=== PATIENT | male | born 1965 | race African-American/Black ===

== ENCOUNTER 2020-12-08 10:58 | Inpatient (IN) | payer SELFPAY ==
[~2020-12-08 10:58] MED LIST: Iopamidol 370 76% 100 ML VIAL ONE
[2020-12-08] MEDS ORDERED: Nitroglycerin 2% Ointment 1 INCH/1 GM Packet ONE (11:12)
[2020-12-08 11:28] LABS: #Basophils 0.1 thou/uL (0.0-0.2); #Eosinphils 0.1 thou/uL (0.0-0.7); #Lymphocytes 1.4 thou/uL (1.20-3.40); #Monocytes 0.4 thou/uL (0.11-0.59); #Neutrophils 3.8 thou/uL (1.40-6.50); %Basophils 1.4 % (0.0-1.0); %Lymphocytes 23.9 % (21.0-51.0); %Monocytes 7.5 % (0.0-10.0); %Neutrophils 66.3 % (42.0-75.0); Hemoglobin 13.6 g/dL (14.0-18.0); Mean Corpuscular HGB CONC 32.9 g/dL (32.0-36.0); Mean Corpuscular Hemoglobin 32.8 pg (27.0-31.0); Mean Corpuscular Volume 99.6 fL (78.0-98.0); Mean Platelet Volume 7.8 fL (7.4-10.4); Platelet Count 251 thou/uL (130-400); RBC Distribution Width 13.3 % (11.5-14.5); Red Blood Cell (RBC) Count 4.14 mill/uL (4.70-6.10); White Blood Cell (WBC) Count 5.8 thou/uL (4.8-10.8)
[2020-12-08 11:31] LABS: ALT (SGPT) 17 U/L (8-55); AST (SGOT) 23 U/L (5-34); Albumin 3.8 g/dL (3.5-5.0); Alkaline Phosphatase 73 U/L (40-110); Anion Gap 11 mmol/L (10-20); BUN (Urea Nitrogen) 10 mg/dL (8.4-25.7); Bilirubin, Total 0.5 mg/dL (0.2-1.2); Calc. Creatinine Clearance 0 mL/min (70-130); Calcium 8.9 mg/dL (7.8-10.44); Carbon Dioxide 26 mmol/L (22-29); Chloride 102 mmol/L (98-107); Globulin 3.1 g/dL (2.4-3.5); Glucose 105 mg/dL (70-105); Lipase 6 U/L (8-78); Potassium 3.4 mmol/L (3.5-5.1); Protein, Total 6.9 g/dL (6.0-8.3); Sodium 136 mmol/L (136-145)
[2020-12-08] MEDS ORDERED: Labetalol HCl 100 MG/20 ML VIAL ONE (12:52)
[2020-12-08] MEDS ORDERED: Enoxaparin Sodium 100 MG/ML SYRINGE ONE (12:52)
[2020-12-08 14:05] LABS: SARS-CoV-2 NAA Rapid Test Not Detected (NotDetected)
[2020-12-08] MEDS ORDERED: cefTRIAXone\\ROCEPHIN 2 GM VIAL ONE (14:05)
[2020-12-08] MEDS ORDERED: Azithromycin 500 MG VIAL ONE (14:05)
[2020-12-08 14:44] LABS: Troponin I Less than 0.010 ng/mL (< 0.028)
[2020-12-08 17:59] LABS: Troponin I Less than 0.010 ng/mL (< 0.028)
[2020-12-08 18:00] VITALS: BMI 24.7
[2020-12-08] MEDS ORDERED: Ondansetron PF 4 MG/2 ML Vial IVP PRN (18:45)
[2020-12-08] MEDS ORDERED: Ondansetron ODT 4 MG TAB SL PRN (18:45)
[2020-12-08] MEDS ORDERED: Lorazepam 2 MG/ML VIAL SLOW IVP PRN (18:58)
[2020-12-08] MEDS ORDERED: Potassium Chloride 20 MEQ TAB PO SCH (19:00)
[2020-12-08] MEDS ORDERED: hydrALAZINE 20 MG/ML VIAL SLOW IVP PRN (19:07)
[2020-12-08] MEDS: Multivitamins, Adult 10 ML, Folic Acid 1 MG, Thiamine HCl 100 MG in Dextrose 5 %-0.45 %... IV SCH (21:52)
[2020-12-09 05:46] LABS: #Basophils 0.1 thou/uL (0.0-0.2); #Lymphocytes 1.9 thou/uL (1.20-3.40); #Monocytes 1.4 thou/uL (0.11-0.59); #Neutrophils 6.7 thou/uL (1.40-6.50); %Basophils 0.5 % (0.0-1.0); %Eosinophils 0.2 % (0.0-10.0); %Lymphocytes 18.5 % (21.0-51.0); %Monocytes 13.5 % (0.0-10.0); %Neutrophils 67.3 % (42.0-75.0); Hemoglobin 13.7 g/dL (14.0-18.0); Mean Corpuscular HGB CONC 33.6 g/dL (32.0-36.0); Mean Corpuscular Hemoglobin 33.4 pg (27.0-31.0); Mean Corpuscular Volume 99.4 fL (78.0-98.0); Platelet Count 243 thou/uL (130-400); RBC Distribution Width 13.3 % (11.5-14.5)
[2020-12-09 05:52] LABS: Hemoglobin A1c 5.3 % (4.0-6.0)
[2020-12-09 06:11] LABS: Anion Gap 12 mmol/L (10-20); BUN (Urea Nitrogen) 11 mg/dL (8.4-25.7); Calc. Creatinine Clearance 88 mL/min (70-130); Carbon Dioxide 25 mmol/L (22-29); Chloride 101 mmol/L (98-107); Cholesterol 163 mg/dl (< 200 Desired); Glucose 114 mg/dL (70-105); HDL Cholesterol 83 mg/dL (>60 Neg Risk); LDL Cholesterol, Calculated 69 mg/dL; Potassium 4.1 mmol/L (3.5-5.1); Sodium 134 mmol/L (136-145); Triglycerides 56 mg/dL (Less than 150)
[2020-12-09 06:36] LABS: Thyroid Stimulating Hormone 0.2192 uIU/mL (0.35-4.94)
[2020-12-09] MEDS: Aspirin 325 mg Enteric Coated Tablet PO SCH (08:38)
[2020-12-09] MEDS ORDERED: Sodium Chloride 0.9% 500 ML IV SCH (10:45)
[2020-12-09] MEDS: Sodium Chloride 0.9% 1,000 ML IV SCH ×2 (11:21→21:51)
[2020-12-09] MEDS ORDERED: ADENOSINE 60 MG/20 ML VIAL ONE (11:49)
[2020-12-09 12:04] LABS: #Basophils 0.1 thou/uL (0.0-0.2); #Lymphocytes 3.3 thou/uL (1.20-3.40); #Monocytes 1.2 thou/uL (0.11-0.59); #Neutrophils 7.2 thou/uL (1.40-6.50); %Basophils 0.8 % (0.0-1.0); %Eosinophils 0.1 % (0.0-10.0); %Lymphocytes 27.9 % (21.0-51.0); %Monocytes 9.9 % (0.0-10.0); %Neutrophils 61.3 % (42.0-75.0); Hemoglobin 13.9 g/dL (14.0-18.0); Mean Corpuscular HGB CONC 32.5 g/dL (32.0-36.0); Mean Corpuscular Hemoglobin 32.6 pg (27.0-31.0); Mean Platelet Volume 7.8 fL (7.4-10.4); Platelet Count 256 thou/uL (130-400); RBC Distribution Width 13.4 % (11.5-14.5); Red Blood Cell (RBC) Count 4.28 mill/uL (4.70-6.10); White Blood Cell (WBC) Count 11.8 thou/uL (4.8-10.8)
[2020-12-09 12:35] LABS: Lactic Acid 2.3 mmol/L (0.5-2.2)
[2020-12-09] MEDS: cefTRIAXone\\ROCEPHIN 2 GM in Sodium Chloride 0.9% 100 ML IVPB SCH (13:41)
[2020-12-09] MEDS: Azithromycin 500 MG in Sodium Chloride 0.9% 250 ML 250 ML IVPB SCH (14:48)
[2020-12-09] MEDS ORDERED: Communication Order-Pharmacy FS SCH (20:15)
[2020-12-09] MEDS ORDERED: Carvedilol 3.125 MG TAB PO SCH (20:45)
[2020-12-09] MEDS: Multivitamins, Adult 10 ML, Folic Acid 1 MG, Thiamine HCl 100 MG in Dextrose 5 %-0.45 %... IV SCH (21:51)
[2020-12-10 01:47] LABS: Amphetamine Detected (NotDetected); Barbiturates Screen Not Detected (NotDetected); Benzodiazepine Screen Not Detected (NotDetected); Cocaine Metabolite Screen Not Detected (NotDetected); Medtox Control Line Valid? VALID (VALID); Medtox Reader # READER 4; Methadone Not Detected (NotDetected); Methamphetamine Detected (NotDetected); Opiate Screen Not Detected (NotDetected); Oxycodone Screen Not Detected (NotDetected); Phencyclidine (PCP) Not Detected (NotDetected); THC/Cannabinoid Screen Not Detected (NotDetected); Tricyclic Screen Not Detected (NotDetected)
[2020-12-10 05:13] LABS: #Lymphocytes 2.4 thou/uL (1.20-3.40); #Monocytes 1.4 thou/uL (0.11-0.59); #Neutrophils 6.1 thou/uL (1.40-6.50); %Basophils 0.2 % (0.0-1.0); %Eosinophils 0.5 % (0.0-10.0); %Lymphocytes 24.2 % (21.0-51.0); %Monocytes 13.8 % (0.0-10.0); %Neutrophils 61.4 % (42.0-75.0); Hemoglobin 13.5 g/dL (14.0-18.0); Mean Corpuscular HGB CONC 33.2 g/dL (32.0-36.0); Mean Corpuscular Volume 99.6 fL (78.0-98.0); Mean Platelet Volume 7.9 fL (7.4-10.4); Platelet Count 237 thou/uL (130-400); RBC Distribution Width 13.3 % (11.5-14.5); Red Blood Cell (RBC) Count 4.09 mill/uL (4.70-6.10)
[2020-12-10 05:34] LABS: Anion Gap 12 mmol/L (10-20); BUN (Urea Nitrogen) 12 mg/dL (8.4-25.7); Calc. Creatinine Clearance 78 mL/min (70-130); Calcium 8.9 mg/dL (7.8-10.44); Carbon Dioxide 26 mmol/L (22-29); Chloride 103 mmol/L (98-107); Glucose 97 mg/dL (70-105); Potassium 4.6 mmol/L (3.5-5.1); Sodium 136 mmol/L (136-145)
[2020-12-10] MEDS: Carvedilol 3.125 MG TAB PO SCH ×2 (05:38→17:39)
[2020-12-10] MEDS: Aspirin 325 mg Enteric Coated Tablet PO SCH (05:38)
[2020-12-10] MEDS: Lisinopril 10 MG TAB PO SCH (05:38)
[2020-12-10] MEDS ORDERED: Verapamil 5 MG/2 ML VIAL ONE (06:39)
[2020-12-10] MEDS ORDERED: Heparin 10,000 UNITS/ 10 ML VIAL ONE (06:39)
[2020-12-10] MEDS ORDERED: Lidocaine 1% (PF) 30 ML VIAL ONE (06:39)
[2020-12-10] MEDS ORDERED: Nitroglycerin 100MG/250ML BOT 250 ML ONE (06:39)
[2020-12-10] MEDS ORDERED: hydrALAZINE 20 MG/ML VIAL ONE ×2 (08:03→08:12)
[2020-12-10] MEDS ORDERED: Acetaminophen/Codeine 30-300mg Tablet PO PRN ×4 (08:23→09:04)
[2020-12-10] MEDS ORDERED: Sodium Chloride 0.9% 200 ML IV PRN ×2 (08:23→09:04)
[2020-12-10] MEDS ORDERED: Nitroglycerin 0.4 MG TAB (25 Tab Bottle) SL PRN ×2 (08:23→09:04)
[2020-12-10] MEDS ORDERED: Iopamidol 370 76% 50 ML VIAL FS ONE (09:11)
[2020-12-10] MEDS ORDERED: Iopamidol 370 76% 100 ML VIAL ONE (09:11)
[2020-12-10 12:25] LABS: Lactic Acid 1.4 mmol/L (0.5-2.2)
[2020-12-10] MEDS: Sodium Chloride 0.9% 1,000 ML IV SCH (15:30)
[2020-12-10] MEDS: Azithromycin 500 MG in Sodium Chloride 0.9% 250 ML 250 ML IVPB SCH (15:30)
[2020-12-10] MEDS ORDERED: cefTRIAXone\\ROCEPHIN 2 GM in Sodium Chloride 0.9% 100 ML IVPB SCH (16:00)
[2020-12-10] MEDS: cefTRIAXone\\ROCEPHIN 2 GM in Sodium Chloride 0.9% 100 ML IVPB SCH (18:20)
[2020-12-10] MEDS: Multivitamins, Adult 10 ML, Folic Acid 1 MG, Thiamine HCl 100 MG in Dextrose 5 %-0.45 %... IV SCH (20:26)
[2020-12-11] MEDS: Sodium Chloride 0.9% 1,000 ML IV SCH (02:20)
[2020-12-11 04:41] VITALS: TEMP 98.4
[2020-12-11] MEDS ORDERED: Carvedilol 6.25 MG TAB PO SCH (08:00)
[2020-12-11] MEDS: Lisinopril 10 MG TAB PO SCH (08:19)
[2020-12-11] MEDS: Aspirin 325 mg Enteric Coated Tablet PO SCH (08:19)
[2020-12-11 09:35] VITALS: BP 180/109
[2020-12-11 16:16] LABS: Free T4 (Free Thyroxine) 1.09 ng/dL (0.70-1.48)
== END 2020-12-11 11:41 | disposition home or self-care (01) | DRG 286 ==
LOC: ERS 10:58 → ERHOLD 13:38 → 2SW 18:14 → OBSVTOIN 12-09 18:07
PROVIDERS: ADMIT Internal Medicine; ATTEND Physician Assistant
PROC: 4A023N7 Measurement of Cardiac Sampling and Pressure, Left Heart, Percutaneous Approach (ICD-10-PCS; principal; 2020-12-10)
PROC: B2111ZZ Fluoroscopy of Multiple Coronary Arteries using Low Osmolar Contrast (ICD-10-PCS; 2020-12-10)
PROC: B2151ZZ Fluoroscopy of Left Heart using Low Osmolar Contrast (ICD-10-PCS; 2020-12-10)
PROC: B3101ZZ Fluoroscopy of Thoracic Aorta using Low Osmolar Contrast (ICD-10-PCS; 2020-12-10)
DX: R07.89 Other chest pain (principal); J18.9 Pneumonia, unspecified organism; I10 Essential (primary) hypertension; E78.5 Hyperlipidemia, unspecified; F17.210 Nicotine dependence, cigarettes, uncomplicated; F10.10 Alcohol abuse, uncomplicated; I73.9 Peripheral vascular disease, unspecified; I70.0 Atherosclerosis of aorta; Z20.822 Contact with and (suspected) exposure to COVID-19; Z82.49 Family history of ischemic heart disease and other diseases of the circulatory system
CPT/HCPCS: 0240U; 36415; 71045; 71275; 74174; 78452; 80048; 80053; 80061; 80306; 82607; 82746; 83036; 83605; 83690; 83735; 83880; 84439; 84443; 84481; 84484; 85025; 87040; 90471; 90732; 93005; 93017; 93306; 93458; 96365; 96366; 96367; 96372; 96375; A9500; G0009; G0378; J0153; J0360; J0456; J0696; J1644; J1650; J2001; J3411; J3490; J7042; J7050; Q9967

== ENCOUNTER 2022-05-04 09:17 | Inpatient (IN) | payer SELFPAY ==
[2022-05-04 11:27] VITALS: BMI 24.5
[2022-05-04] MEDS ORDERED: FLU VACC QS2022-23(6MOS UP)/PF 60 MCG/0.5 ML SYRINGE IM ONE (11:45)
[2022-05-04 12:11] LABS: #Basophils 0.1 thou/uL (0.0-0.2); #Eosinphils 0.1 thou/uL (0.0-0.7); #Lymphocytes 1.6 thou/uL (1.20-3.40); #Monocytes 0.8 thou/uL (0.11-0.59); #Neutrophils 4.2 thou/uL (1.40-6.50); %Basophils 0.9 % (0.0-1.0); %Eosinophils 0.8 % (0.0-10.0); %Lymphocytes 23.9 % (21.0-51.0); %Monocytes 12.2 % (0.0-10.0); %Neutrophils 62.2 % (42.0-75.0); Hemoglobin 14.3 g/dL (14.0-18.0); Mean Corpuscular HGB CONC 33.7 g/dL (32.0-36.0); Mean Corpuscular Hemoglobin 34.4 pg (27.0-31.0); Mean Platelet Volume 7.7 fL (7.4-10.4); Platelet Count 313 10x3/uL (130-400); Red Blood Cell (RBC) Count 4.16 mill/uL (4.70-6.10); White Blood Cell (WBC) Count 6.8 10x3/uL (4.8-10.8)
[2022-05-04] MEDS ORDERED: hydrALAZINE 20 MG/ML VIAL SLOW IVP PRN (12:19)
[2022-05-04 12:26] LABS: ALT (SGPT) 63 U/L (8-55); AST (SGOT) 41 U/L (5-34); Alkaline Phosphatase 119 U/L (40-110); Anion Gap 14 mmol/L (10-20); BUN (Urea Nitrogen) 14 mg/dL (8.4-25.7); Bilirubin, Total 1.1 mg/dL (0.2-1.2); Calc. Creatinine Clearance 72 mL/min (70-130); Calcium 9.5 mg/dL (7.8-10.44); Carbon Dioxide 28 mmol/L (22-29); Chloride 103 mmol/L (98-107); Estimated GFR 63; Globulin 2.8 g/dL (2.4-3.5); Glucose 80 mg/dL (70-105); Potassium 4.4 mmol/L (3.5-5.1); Protein, Total 6.8 g/dL (6.0-8.3); Sodium 141 mmol/L (136-145)
[2022-05-04 12:41] LABS: CKMB 3.8 ng/mL (0-6.6)
[2022-05-04] MEDS ORDERED: Oseltamivir 75 MG CAP PO SCH (12:41)
[2022-05-04] MEDS ORDERED: Furosemide 40 MG/4 ML VIAL SLOW IVP SCH (14:00)
[2022-05-04 14:08] LABS: SARS-CoV-2 NAA Rapid Test Not Detected (NotDetected)
[2022-05-04] MEDS: Heparin 5,000 UNITS/ML VIAL SC SCH ×2 (14:21→21:22)
[2022-05-04] MEDS: Acetaminophen 325 MG TAB PO PRN (14:23)
[2022-05-04] MEDS: Carvedilol 3.125 MG TAB PO SCH (16:28)
[2022-05-04] MEDS: cefTRIAXone\\ROCEPHIN 1 GM in Sodium Chloride 0.9% 100 ML IVPB SCH (16:28)
[2022-05-04] MEDS: Azithromycin 500 MG in Sodium Chloride 0.9% 250 ML 250 ML IVPB SCH (17:42)
[2022-05-04] MEDS: Simvastatin 10 MG TAB PO SCH (21:22)
[2022-05-04] MEDS: Furosemide 40 MG/4 ML VIAL SLOW IVP SCH (21:22)
[2022-05-04] MEDS: Oseltamivir 75 MG CAP PO SCH (21:23)
[2022-05-05 05:14] LABS: Anion Gap 13 mmol/L (10-20); BUN (Urea Nitrogen) 17 mg/dL (8.4-25.7); Calc. Creatinine Clearance 71 mL/min (70-130); Calcium 8.9 mg/dL (7.8-10.44); Carbon Dioxide 28 mmol/L (22-29); Chloride 101 mmol/L (98-107); Estimated GFR 62; Glucose 79 mg/dL (70-105); Potassium 3.4 mmol/L (3.5-5.1); Sodium 139 mmol/L (136-145)
[2022-05-05] MEDS: Aspirin Chewable 81 MG TAB PO SCH (08:50)
[2022-05-05] MEDS: Oseltamivir 75 MG CAP PO SCH ×2 (08:50→21:43)
[2022-05-05] MEDS: Carvedilol 3.125 MG TAB PO SCH ×2 (08:50→16:30)
[2022-05-05] MEDS: Heparin 5,000 UNITS/ML VIAL SC SCH ×3 (08:50→21:42)
[2022-05-05] MEDS: Acetaminophen 325 MG TAB PO PRN (08:50)
[2022-05-05] MEDS: Furosemide 40 MG/4 ML VIAL SLOW IVP SCH ×2 (08:50→21:42)
[2022-05-05] MEDS: cefTRIAXone\\ROCEPHIN 1 GM in Sodium Chloride 0.9% 100 ML IVPB SCH (17:26)
[2022-05-05] MEDS: Azithromycin 500 MG in Sodium Chloride 0.9% 250 ML 250 ML IVPB SCH (17:30)
[2022-05-05] MEDS: Simvastatin 10 MG TAB PO SCH (21:43)
[2022-05-06 05:04] LABS: #Basophils 0.1 thou/uL (0.0-0.2); #Eosinphils 0.2 thou/uL (0.0-0.7); #Lymphocytes 1.9 thou/uL (1.20-3.40); #Monocytes 0.7 thou/uL (0.11-0.59); #Neutrophils 3.1 thou/uL (1.40-6.50); %Basophils 1.1 % (0.0-1.0); %Eosinophils 2.8 % (0.0-10.0); %Monocytes 11.1 % (0.0-10.0); Hemoglobin 13.4 g/dL (14.0-18.0); Mean Corpuscular HGB CONC 32.7 g/dL (32.0-36.0); Mean Corpuscular Hemoglobin 33.2 pg (27.0-31.0); Platelet Count 286 10x3/uL (130-400); RBC Distribution Width 12.9 % (11.5-14.5); Red Blood Cell (RBC) Count 4.04 mill/uL (4.70-6.10); White Blood Cell (WBC) Count 5.8 10x3/uL (4.8-10.8)
[2022-05-06 05:17] LABS: Anion Gap 12 mmol/L (10-20); BUN (Urea Nitrogen) 19 mg/dL (8.4-25.7); Calc. Creatinine Clearance 73 mL/min (70-130); Calcium 8.8 mg/dL (7.8-10.44); Carbon Dioxide 27 mmol/L (22-29); Chloride 101 mmol/L (98-107); Estimated GFR 64; Glucose 89 mg/dL (70-105); Potassium 3.5 mmol/L (3.5-5.1); Sodium 136 mmol/L (136-145)
[2022-05-06] MEDS: Oseltamivir 75 MG CAP PO SCH ×2 (09:27→20:36)
[2022-05-06] MEDS: Carvedilol 3.125 MG TAB PO SCH (09:27)
[2022-05-06] MEDS: Aspirin Chewable 81 MG TAB PO SCH (09:27)
[2022-05-06] MEDS: Heparin 5,000 UNITS/ML VIAL SC SCH ×3 (09:27→20:35)
[2022-05-06] MEDS: Furosemide 40 MG/4 ML VIAL SLOW IVP SCH ×2 (09:27→20:36)
[2022-05-06] MEDS: Acetaminophen 325 MG TAB PO PRN (09:28)
[2022-05-06] MEDS ORDERED: Carvedilol 3.125 MG TAB PO SCH (10:45)
[2022-05-06] MEDS: Carvedilol 6.25 MG TAB PO SCH (16:52)
[2022-05-06] MEDS: cefTRIAXone\\ROCEPHIN 1 GM in Sodium Chloride 0.9% 100 ML IVPB SCH (16:52)
[2022-05-06] MEDS: Simvastatin 10 MG TAB PO SCH (20:36)
[2022-05-07 05:06] LABS: #Eosinphils 0.3 thou/uL (0.0-0.7); #Lymphocytes 1.9 thou/uL (1.20-3.40); #Monocytes 0.7 thou/uL (0.11-0.59); #Neutrophils 2.4 thou/uL (1.40-6.50); %Basophils 0.6 % (0.0-1.0); %Eosinophils 4.8 % (0.0-10.0); %Lymphocytes 35.4 % (21.0-51.0); %Monocytes 13.9 % (0.0-10.0); %Neutrophils 45.3 % (42.0-75.0); Hemoglobin 13.1 g/dL (14.0-18.0); Mean Corpuscular Hemoglobin 33.5 pg (27.0-31.0); Platelet Count 275 10x3/uL (130-400); RBC Distribution Width 12.8 % (11.5-14.5); White Blood Cell (WBC) Count 5.3 10x3/uL (4.8-10.8)
[2022-05-07 05:30] LABS: Anion Gap 11 mmol/L (10-20); BUN (Urea Nitrogen) 21 mg/dL (8.4-25.7); Calc. Creatinine Clearance 63 mL/min (70-130); Calcium 8.8 mg/dL (7.8-10.44); Carbon Dioxide 29 mmol/L (22-29); Chloride 101 mmol/L (98-107); Estimated GFR 50; Glucose 89 mg/dL (70-105); Magnesium 1.9 mg/dL (1.6-2.6); Potassium 3.7 mmol/L (3.5-5.1); Sodium 137 mmol/L (136-145)
[2022-05-07] MEDS: Furosemide 40 MG/4 ML VIAL SLOW IVP SCH ×2 (10:08→20:44)
[2022-05-07] MEDS: Heparin 5,000 UNITS/ML VIAL SC SCH ×2 (10:08→15:25)
[2022-05-07] MEDS: Oseltamivir 75 MG CAP PO SCH ×2 (10:08→20:45)
[2022-05-07] MEDS: Carvedilol 6.25 MG TAB PO SCH ×2 (10:08→16:15)
[2022-05-07] MEDS: Aspirin Chewable 81 MG TAB PO SCH (10:08)
[2022-05-07] MEDS: cefTRIAXone\\ROCEPHIN 1 GM in Sodium Chloride 0.9% 100 ML IVPB SCH (16:15)
[2022-05-07] MEDS: Acetaminophen 325 MG TAB PO PRN (20:44)
[2022-05-07] MEDS: Simvastatin 10 MG TAB PO SCH (20:45)
[2022-05-08] MEDS: Acetaminophen 325 MG TAB PO PRN (02:17)
[2022-05-08 03:03] LABS: Troponin I 0.269 ng/mL (< 0.028)
[2022-05-08] MEDS ORDERED: Enoxaparin Sodium 80 MG/0.8 ML SYRINGE SC SCH (03:45)
[2022-05-08 05:19] LABS: Anion Gap 11 mmol/L (10-20); BUN (Urea Nitrogen) 20 mg/dL (8.4-25.7); Calc. Creatinine Clearance 64 mL/min (70-130); Calcium 9.1 mg/dL (7.8-10.44); Carbon Dioxide 28 mmol/L (22-29); Chloride 102 mmol/L (98-107); Estimated GFR 56; Glucose 96 mg/dL (70-105); Sodium 137 mmol/L (136-145)
[2022-05-08] MEDS: Nitroglycerin 0.4 MG TAB (25 Tab Bottle) SL PRN ×3 (05:19→05:36)
[2022-05-08 05:54] LABS: Troponin I 0.291 ng/mL (< 0.028)
[2022-05-08] MEDS: Oseltamivir 75 MG CAP PO SCH ×2 (08:53→20:07)
[2022-05-08] MEDS: Aspirin Chewable 81 MG TAB PO SCH (08:53)
[2022-05-08] MEDS: Furosemide 40 MG/4 ML VIAL SLOW IVP SCH (08:53)
[2022-05-08] MEDS: Carvedilol 6.25 MG TAB PO SCH ×2 (08:53→17:33)
[2022-05-08 10:26] LABS: Troponin I 0.417 ng/mL (< 0.028)
[2022-05-08] MEDS ORDERED: Nitroglycerin 2% Ointment 1 INCH/1 GM Packet TOP SCH (11:15)
[2022-05-08] MEDS: Nitroglycerin 2% Ointment 1 INCH/1 GM Packet TOP SCH ×2 (14:59→21:20)
[2022-05-08] MEDS: cefTRIAXone\\ROCEPHIN 1 GM in Sodium Chloride 0.9% 100 ML IVPB SCH (17:33)
[2022-05-08] MEDS: Simvastatin 10 MG TAB PO SCH (20:07)
[2022-05-08] MEDS: Enoxaparin Sodium 80 MG/0.8 ML SYRINGE SC SCH (20:08)
[2022-05-09 04:51] LABS: Anion Gap 11 mmol/L (10-20); BUN (Urea Nitrogen) 17 mg/dL (8.4-25.7); Calc. Creatinine Clearance 70 mL/min (70-130); Carbon Dioxide 27 mmol/L (22-29); Chloride 102 mmol/L (98-107); Estimated GFR 64; Glucose 86 mg/dL (70-105); Sodium 136 mmol/L (136-145)
[2022-05-09] MEDS: Nitroglycerin 2% Ointment 1 INCH/1 GM Packet TOP SCH ×2 (05:16→13:43)
[2022-05-09] MEDS: Furosemide 20 MG TAB PO SCH ×2 (08:10→13:43)
[2022-05-09] MEDS: Carvedilol 6.25 MG TAB PO SCH ×2 (08:10→16:35)
[2022-05-09] MEDS: Enoxaparin Sodium 80 MG/0.8 ML SYRINGE SC SCH ×2 (08:10→20:03)
[2022-05-09] MEDS: Aspirin Chewable 81 MG TAB PO SCH (08:10)
[2022-05-09] MEDS ORDERED: Lisinopril 5 MG TAB PO SCH (13:30)
[2022-05-09] MEDS: Simvastatin 10 MG TAB PO SCH (20:03)
[2022-05-10] MEDS: Acetaminophen 325 MG TAB PO PRN (03:34)
[2022-05-10 05:20] LABS: Anion Gap 12 mmol/L (10-20); BUN (Urea Nitrogen) 19 mg/dL (8.4-25.7); Calc. Creatinine Clearance 74 mL/min (70-130); Calcium 8.9 mg/dL (7.8-10.44); Carbon Dioxide 27 mmol/L (22-29); Chloride 101 mmol/L (98-107); Estimated GFR 60; Glucose 79 mg/dL (70-105); Sodium 136 mmol/L (136-145)
[2022-05-10] MEDS: Furosemide 20 MG TAB PO SCH (08:20)
[2022-05-10] MEDS: Carvedilol 6.25 MG TAB PO SCH (08:20)
[2022-05-10] MEDS: Aspirin Chewable 81 MG TAB PO SCH (08:22)
[2022-05-10] MEDS ORDERED: Lisinopril 5 MG TAB PO SCH (09:00)
[2022-05-10 12:04] VITALS: BP 106/69; TEMP 97.7
== END 2022-05-10 12:50 | disposition home or self-care (01) | DRG 280 ==
LOC: 2NO 11:06
PROVIDERS: ADMIT Internal Medicine; ATTEND Internal Medicine
DX: I11.0 Hypertensive heart disease with heart failure (principal); I21.A1 Myocardial infarction type 2; I50.43 Acute on chronic combined systolic (congestive) and diastolic (congestive) heart failure; J96.01 Acute respiratory failure with hypoxia; N17.9 Acute kidney failure, unspecified; I16.9 Hypertensive crisis, unspecified; I48.92 Unspecified atrial flutter; J10.1 Influenza due to other identified influenza virus with other respiratory manifestations; Z20.822 Contact with and (suspected) exposure to COVID-19; F15.10 Other stimulant abuse, uncomplicated; F10.10 Alcohol abuse, uncomplicated; K76.89 Other specified diseases of liver; Z91.199 Patient's noncompliance with other medical treatment and regimen due to unspecified reason; Z53.29 Procedure and treatment not carried out because of patient's decision for other reasons; Z79.82 Long term (current) use of aspirin
CPT/HCPCS: 36415; 80048; 82553; 83735; 83880; 84145; 84484; 85025; 93005; 93010; 93798; J0456; J0696; J1644; J1650; J1940; J3490; J7050; U0002

== ENCOUNTER 2022-09-20 17:42 | Inpatient (IN) | payer SELFPAY ==
[2022-09-20 18:20] LABS: #Eosinphils 0.1 thou/uL (0.0-0.7); #Lymphocytes 1.2 thou/uL (1.20-3.40); #Monocytes 0.8 thou/uL (0.11-0.59); #Neutrophils 4.9 thou/uL (1.40-6.50); %Basophils 0.3 % (0.0-1.0); %Eosinophils 0.7 % (0.0-10.0); %Lymphocytes 17.9 % (21.0-51.0); %Monocytes 10.9 % (0.0-10.0); %Neutrophils 70.2 % (42.0-75.0); Hemoglobin 12.8 g/dL (14.0-18.0); Mean Corpuscular HGB CONC 33.7 g/dL (32.0-36.0); Mean Corpuscular Hemoglobin 33.7 pg (27.0-31.0); Mean Platelet Volume 7.6 fL (7.4-10.4); Platelet Count 264 10x3/uL (130-400); RBC Distribution Width 14.1 % (11.5-14.5); Red Blood Cell (RBC) Count 3.79 mill/uL (4.70-6.10); White Blood Cell (WBC) Count 6.9 10x3/uL (4.8-10.8)
[2022-09-20 18:38] LABS: ALT (SGPT) 20 U/L (8-55); AST (SGOT) 15 U/L (5-34); Albumin 3.6 g/dL (3.5-5.0); Alkaline Phosphatase 89 U/L (40-110); Anion Gap 9 mmol/L (10-20); BUN (Urea Nitrogen) 10 mg/dL (8.4-25.7); Bilirubin, Total 1.5 mg/dL (0.2-1.2); CK (CPK) 96 U/L (30-200); Calc. Creatinine Clearance 0 mL/min (70-130); Calcium 8.7 mg/dL (7.8-10.44); Carbon Dioxide 26 mmol/L (22-29); Chloride 104 mmol/L (98-107); Estimated GFR 68; Glucose 105 mg/dL (70-105); Protein, Total 6.6 g/dL (6.0-8.3); Sodium 135 mmol/L (136-145)
[2022-09-20 19:00] LABS: CKMB 2.2 ng/mL (0-6.6)
[2022-09-20] MEDS ORDERED: Nitroglycerin 2% Ointment 1 INCH/1 GM Packet ONE (19:14)
[2022-09-20] MEDS ORDERED: Furosemide 40 MG/4 ML VIAL ONE ×2 (19:14→19:15)
[2022-09-20] MEDS ORDERED: Aspirin Chewable 81 MG TAB ONE (19:14)
[2022-09-20] MEDS ORDERED: Acetaminophen 325 MG TAB PO PRN (19:20)
[2022-09-20] MEDS ORDERED: Ondansetron PF 4 MG/2 ML Vial IVP PRN (19:20)
[2022-09-20] MEDS ORDERED: Guaifenesin DM 100-10/5 ML UDCUP PO PRN (19:20)
[2022-09-20] MEDS ORDERED: Senokot S 8.6-50 MG TAB PO PRN (19:20)
[2022-09-20] MEDS ORDERED: Calcium Carbonate 500 MG ChewTAB PO PRN (19:20)
[2022-09-20 21:36] VITALS: BMI 26.8
[2022-09-20 22:56] LABS: Troponin I 0.038 ng/mL (< 0.028)
[2022-09-21] MEDS: Simvastatin 10 MG TAB PO SCH ×2 (00:35→20:54)
[2022-09-21 01:19] LABS: Troponin I 0.041 ng/mL (< 0.028)
[2022-09-21 04:58] LABS: #Eosinphils 0.1 thou/uL (0.0-0.7); #Lymphocytes 1.6 thou/uL (1.20-3.40); #Monocytes 0.7 thou/uL (0.11-0.59); #Neutrophils 4.2 thou/uL (1.40-6.50); %Basophils 0.5 % (0.0-1.0); %Eosinophils 1.1 % (0.0-10.0); %Lymphocytes 23.7 % (21.0-51.0); %Monocytes 10.8 % (0.0-10.0); %Neutrophils 63.9 % (42.0-75.0); Hemoglobin 12.5 g/dL (14.0-18.0); Mean Corpuscular HGB CONC 33.4 g/dL (32.0-36.0); Mean Corpuscular Hemoglobin 33.5 pg (27.0-31.0); Mean Platelet Volume 7.8 fL (7.4-10.4); Platelet Count 254 10x3/uL (130-400); RBC Distribution Width 14.5 % (11.5-14.5); Red Blood Cell (RBC) Count 3.74 mill/uL (4.70-6.10); White Blood Cell (WBC) Count 6.6 10x3/uL (4.8-10.8)
[2022-09-21] MEDS: Furosemide 40 MG/4 ML VIAL SLOW IVP SCH ×2 (05:22→14:18)
[2022-09-21 05:27] LABS: ALT (SGPT) 19 U/L (8-55); AST (SGOT) 13 U/L (5-34); Albumin 3.4 g/dL (3.5-5.0); Alkaline Phosphatase 84 U/L (40-110); Anion Gap 12 mmol/L (10-20); BUN (Urea Nitrogen) 11 mg/dL (8.4-25.7); Calc. Creatinine Clearance 89 mL/min (70-130); Calcium 8.6 mg/dL (7.8-10.44); Carbon Dioxide 25 mmol/L (22-29); Chloride 105 mmol/L (98-107); Estimated GFR 72; Globulin 2.9 g/dL (2.4-3.5); Glucose 93 mg/dL (70-105); Magnesium 1.9 mg/dL (1.6-2.6); Potassium 3.8 mmol/L (3.5-5.1); Protein, Total 6.3 g/dL (6.0-8.3); Sodium 138 mmol/L (136-145)
[2022-09-21] MEDS: Lisinopril 5 MG TAB PO SCH (08:31)
[2022-09-21] MEDS: Carvedilol 6.25 MG TAB PO SCH ×2 (08:31→16:26)
[2022-09-21] MEDS: Aspirin Chewable 81 MG TAB PO SCH (08:31)
[2022-09-22 05:29] LABS: #Eosinphils 0.1 thou/uL (0.0-0.7); #Lymphocytes 1.6 thou/uL (1.20-3.40); #Monocytes 0.8 thou/uL (0.11-0.59); #Neutrophils 3.4 thou/uL (1.40-6.50); %Basophils 0.3 % (0.0-1.0); %Eosinophils 1.7 % (0.0-10.0); Anion Gap 8 mmol/L (10-20); BUN (Urea Nitrogen) 13 mg/dL (8.4-25.7); Calc. Creatinine Clearance 87 mL/min (70-130); Calcium 8.6 mg/dL (7.8-10.44); Carbon Dioxide 31 mmol/L (22-29); Chloride 102 mmol/L (98-107); Estimated GFR 71; Glucose 95 mg/dL (70-105); Hemoglobin 11.9 g/dL (14.0-18.0); Mean Corpuscular HGB CONC 32.7 g/dL (32.0-36.0); Mean Corpuscular Hemoglobin 32.9 pg (27.0-31.0); Platelet Count 251 10x3/uL (130-400); Potassium 3.7 mmol/L (3.5-5.1); RBC Distribution Width 14.1 % (11.5-14.5); Sodium 137 mmol/L (136-145); White Blood Cell (WBC) Count 5.9 10x3/uL (4.8-10.8)
[2022-09-22] MEDS ORDERED: Furosemide 20 MG TAB PO SCH (09:00)
[2022-09-22] MEDS: Furosemide 40 MG TAB PO SCH ×2 (10:50→14:10)
[2022-09-22] MEDS: Lisinopril 5 MG TAB PO SCH (10:50)
[2022-09-22] MEDS: Aspirin Chewable 81 MG TAB PO SCH (10:50)
[2022-09-22] MEDS: Carvedilol 6.25 MG TAB PO SCH (10:52)
[2022-09-22 15:49] LABS: Amphetamine Not Detected (NotDetected); Barbiturates Screen Not Detected (NotDetected); Benzodiazepine Screen Not Detected (NotDetected); Cocaine Metabolite Screen Not Detected (NotDetected); Methadone Not Detected (NotDetected); Methamphetamine Not Detected (NotDetected); Opiate Screen Not Detected (NotDetected); Oxycodone Screen Not Detected (NotDetected); Phencyclidine (PCP) Not Detected (NotDetected); THC/Cannabinoid Screen Not Detected (NotDetected); Tricyclic Screen Not Detected (NotDetected)
[2022-09-22] MEDS: Carvedilol 25 MG TAB PO SCH (16:17)
[2022-09-22] MEDS ORDERED: Carvedilol 6.25 MG TAB PO SCH (17:00)
[2022-09-22] MEDS: Simvastatin 10 MG TAB PO SCH (20:16)
[2022-09-22] MEDS: Lisinopril 10 MG TAB PO SCH (23:12)
[2022-09-23] MEDS ORDERED: Nitroglycerin 0.4 MG TAB (25 Tab Bottle) SL PRN (01:02)
[2022-09-23 05:26] LABS: #Eosinphils 0.1 thou/uL (0.0-0.7); #Lymphocytes 1.6 thou/uL (1.20-3.40); #Monocytes 0.7 thou/uL (0.11-0.59); #Neutrophils 3.3 thou/uL (1.40-6.50); %Basophils 0.5 % (0.0-1.0); %Eosinophils 2.3 % (0.0-10.0); %Lymphocytes 27.5 % (21.0-51.0); %Monocytes 12.6 % (0.0-10.0); %Neutrophils 57.1 % (42.0-75.0); Mean Corpuscular HGB CONC 32.9 g/dL (32.0-36.0); Mean Platelet Volume 7.8 fL (7.4-10.4); Platelet Count 252 10x3/uL (130-400); RBC Distribution Width 14.2 % (11.5-14.5); Red Blood Cell (RBC) Count 3.65 mill/uL (4.70-6.10); White Blood Cell (WBC) Count 5.8 10x3/uL (4.8-10.8)
[2022-09-23 05:51] LABS: Anion Gap 13 mmol/L (10-20); BUN (Urea Nitrogen) 16 mg/dL (8.4-25.7); Calc. Creatinine Clearance 74 mL/min (70-130); Calcium 9.1 mg/dL (7.8-10.44); Carbon Dioxide 25 mmol/L (22-29); Chloride 103 mmol/L (98-107); Estimated GFR 62; Glucose 93 mg/dL (70-105); Potassium 3.8 mmol/L (3.5-5.1); Sodium 137 mmol/L (136-145)
[2022-09-23] MEDS: Carvedilol 25 MG TAB PO SCH ×2 (08:28→17:36)
[2022-09-23] MEDS: Aspirin Chewable 81 MG TAB PO SCH (08:28)
[2022-09-23] MEDS: Lisinopril 10 MG TAB PO SCH ×2 (08:28→19:52)
[2022-09-23] MEDS: Furosemide 40 MG TAB PO SCH ×2 (08:28→14:25)
[2022-09-23] MEDS ORDERED: Spironolactone 25 MG TAB PO SCH (09:45)
[2022-09-23] MEDS: hydrALAZINE 25 MG TAB PO SCH ×2 (14:25→19:52)
[2022-09-23] MEDS: Simvastatin 10 MG TAB PO SCH (19:52)
[2022-09-24 04:45] VITALS: TEMP 97.9
[2022-09-24 05:40] LABS: #Eosinphils 0.1 thou/uL (0.0-0.7); #Lymphocytes 1.8 thou/uL (1.20-3.40); #Monocytes 0.9 thou/uL (0.11-0.59); %Basophils 0.3 % (0.0-1.0); %Eosinophils 1.6 % (0.0-10.0); %Lymphocytes 30.9 % (21.0-51.0); %Monocytes 14.9 % (0.0-10.0); %Neutrophils 52.3 % (42.0-75.0); Hemoglobin 11.8 g/dL (14.0-18.0); Mean Corpuscular HGB CONC 32.1 g/dL (32.0-36.0); Mean Corpuscular Hemoglobin 32.5 pg (27.0-31.0); Mean Platelet Volume 7.7 fL (7.4-10.4); Platelet Count 294 10x3/uL (130-400); Red Blood Cell (RBC) Count 3.64 mill/uL (4.70-6.10); White Blood Cell (WBC) Count 5.7 10x3/uL (4.8-10.8)
[2022-09-24 06:12] LABS: Anion Gap 9 mmol/L (10-20); BUN (Urea Nitrogen) 14 mg/dL (8.4-25.7); Calc. Creatinine Clearance 71 mL/min (70-130); Calcium 8.8 mg/dL (7.8-10.44); Carbon Dioxide 30 mmol/L (22-29); Chloride 102 mmol/L (98-107); Estimated GFR 61; Glucose 86 mg/dL (70-105); Phosphorus 3.6 mg/dL (2.3-4.7); Potassium 3.6 mmol/L (3.5-5.1); Sodium 137 mmol/L (136-145)
[2022-09-24 08:43] VITALS: BP 118/90
[2022-09-24] MEDS: hydrALAZINE 25 MG TAB PO SCH (08:44)
[2022-09-24] MEDS: Aspirin Chewable 81 MG TAB PO SCH (08:44)
[2022-09-24] MEDS: Carvedilol 25 MG TAB PO SCH (08:44)
[2022-09-24] MEDS: Lisinopril 10 MG TAB PO SCH (08:44)
[2022-09-24] MEDS: Furosemide 40 MG TAB PO SCH (08:44)
[2022-09-24] MEDS ORDERED: Multivitamin W/ Minerals 1 TAB PO SCH (09:00)
[2022-09-24] MEDS ORDERED: Spironolactone 25 MG TAB PO SCH (09:00)
[2022-09-24] MEDS ORDERED: Folic Acid 1 MG TAB PO SCH (09:00)
[2022-09-25] MEDS ORDERED: Furosemide 40 MG TAB PO SCH (07:30)
== END 2022-09-24 12:30 | disposition home or self-care (01) | DRG 280 ==
LOC: ERS 17:42 → SUATTDRO 17:42 → 2SW 19:26
PROVIDERS: ADMIT Internal Medicine; ATTEND Internal Medicine
DX: I13.0 Hypertensive heart and chronic kidney disease with heart failure and stage 1 through stage 4 chronic kidney disease, or unspecified chronic kidney disease (principal); I50.43 Acute on chronic combined systolic (congestive) and diastolic (congestive) heart failure; I21.A1 Myocardial infarction type 2; I47.1 Supraventricular tachycardia; Z20.822 Contact with and (suspected) exposure to COVID-19; E78.5 Hyperlipidemia, unspecified; N18.2 Chronic kidney disease, stage 2 (mild); F10.10 Alcohol abuse, uncomplicated; F17.210 Nicotine dependence, cigarettes, uncomplicated; I42.8 Other cardiomyopathies; F19.10 Other psychoactive substance abuse, uncomplicated; Z79.82 Long term (current) use of aspirin; Z79.899 Other long term (current) drug therapy
CPT/HCPCS: 36415; 71045; 80048; 80053; 80306; 82550; 82553; 83735; 83880; 84100; 84484; 85025; 93005; 93306; 93798; 96374; 97139; J1650; J1940; U0003; U0005

== ENCOUNTER 2023-02-08 04:33 | Inpatient (IN) | payer SELFPAY ==
[2023-02-08] MEDS ORDERED: Ondansetron ODT 4 MG TAB PO PRN (05:42)
[2023-02-08] MEDS ORDERED: Lorazepam 1 MG TAB PO PRN (05:42)
[2023-02-08] MEDS ORDERED: Lorazepam 2 MG/ML VIAL IM PRN (05:42)
[2023-02-08] MEDS ORDERED: Acetaminophen 325 MG TAB PO PRN (05:43)
[2023-02-08] MEDS ORDERED: Senokot S 8.6-50 MG TAB PO PRN (05:43)
[2023-02-08] MEDS ORDERED: Electrolyte Replacement Protocol 1 EACH FS SCH (05:45)
[2023-02-08 06:37] VITALS: BMI 25.9
[2023-02-08 07:00] LABS: #Eosinphils 0.1 thou/uL (0.0-0.7); #Monocytes 0.5 thou/uL (0.11-0.59); #Neutrophils 3.3 thou/uL (1.40-6.50); %Basophils 0.8 % (0.0-1.0); %Eosinophils 1.4 % (0.0-10.0); %Monocytes 10.2 % (0.0-10.0); %Neutrophils 67.4 % (42.0-75.0); Hematocrit 37.5 % (42.0-52.0); Hemoglobin 12.3 g/dL (14.0-18.0); Mean Corpuscular HGB CONC 32.8 g/dL (32.0-36.0); Mean Corpuscular Hemoglobin 33.2 pg (27.0-31.0); Mean Corpuscular Volume 101.4 fl (78.0-98.0); Mean Platelet Volume 9.9 fL (7.4-10.4); Platelet Count 221 10x3/uL (130-400); RBC Distribution Width 15.3 % (11.5-14.5); White Blood Cell (WBC) Count 4.9 10x3/uL (4.8-10.8)
[2023-02-08] MEDS: Furosemide 40 MG/4 ML VIAL SLOW IVP SCH ×2 (07:15→13:05)
[2023-02-08 07:23] LABS: ALT (SGPT) 68 U/L (8-55); AST (SGOT) 44 U/L (5-34); Albumin 3.7 g/dL (3.5-5.0); Alkaline Phosphatase 98 U/L (40-110); Anion Gap 9 mmol/L (10-20); BUN (Urea Nitrogen) 12 mg/dL (8.4-25.7); Bilirubin, Total 0.9 mg/dL (0.2-1.2); Calc. Creatinine Clearance 67 mL/min (70-130); Calcium 8.7 mg/dL (7.8-10.44); Carbon Dioxide 23 mmol/L (22-29); Chloride 108 mmol/L (98-107); Estimated GFR 53; Globulin 2.9 g/dL (2.4-3.5); Glucose 106 mg/dL (70-105); Potassium 4.1 mmol/L (3.5-5.1); Protein, Total 6.6 g/dL (6.0-8.3); Sodium 136 mmol/L (136-145)
[2023-02-08] MEDS: Thiamine HCl 200 MG/2 ML VIAL SLOW IVP SCH (09:18)
[2023-02-08] MEDS: Folic Acid 1 MG TAB PO SCH (09:19)
[2023-02-08] MEDS: Lisinopril 10 MG TAB PO SCH ×2 (09:20→21:07)
[2023-02-08] MEDS: Multivit, Therapeutic 1 TAB PO SCH (09:20)
[2023-02-08] MEDS: Famotidine 20 MG TAB PO SCH ×2 (09:20→21:08)
[2023-02-08] MEDS: hydrALAZINE 25 MG TAB PO SCH ×3 (09:20→21:07)
[2023-02-08] MEDS: Aspirin Chewable 81 MG TAB PO SCH (09:21)
[2023-02-08] MEDS: Spironolactone 25 MG TAB PO SCH (09:21)
[2023-02-08] MEDS: Carvedilol 25 MG TAB PO SCH (16:04)
[2023-02-08] MEDS ORDERED: Simvastatin 10 MG TAB PO SCH (21:00)
[2023-02-09 05:09] LABS: Anion Gap 12 mmol/L (10-20); BUN (Urea Nitrogen) 15 mg/dL (8.4-25.7); Calc. Creatinine Clearance 83 mL/min (70-130); Calcium 8.7 mg/dL (7.8-10.44); Carbon Dioxide 24 mmol/L (22-29); Chloride 104 mmol/L (98-107); Estimated GFR 70; Glucose 87 mg/dL (70-105); Potassium 3.6 mmol/L (3.5-5.1); Sodium 136 mmol/L (136-145)
[2023-02-09] MEDS ORDERED: Lorazepam 1 MG TAB PO PRN (05:42)
[2023-02-09] MEDS: Furosemide 40 MG/4 ML VIAL SLOW IVP SCH ×2 (06:24→14:20)
[2023-02-09] MEDS: Thiamine HCl 200 MG/2 ML VIAL SLOW IVP SCH (08:59)
[2023-02-09] MEDS: Spironolactone 25 MG TAB PO SCH (09:00)
[2023-02-09] MEDS: Multivit, Therapeutic 1 TAB PO SCH (09:00)
[2023-02-09] MEDS: Carvedilol 25 MG TAB PO SCH ×2 (09:00→16:47)
[2023-02-09] MEDS: Famotidine 20 MG TAB PO SCH (09:00)
[2023-02-09] MEDS: hydrALAZINE 25 MG TAB PO SCH ×2 (09:00→14:21)
[2023-02-09] MEDS: Lisinopril 10 MG TAB PO SCH (09:00)
[2023-02-09] MEDS: Folic Acid 1 MG TAB PO SCH (09:01)
[2023-02-09] MEDS: Aspirin Chewable 81 MG TAB PO SCH (09:01)
[2023-02-09 11:52] VITALS: TEMP 97.1
[2023-02-09 14:22] VITALS: BP 109/65
[2023-02-10] MEDS ORDERED: Lorazepam 1 MG TAB PO PRN (05:42)
[2023-02-11] MEDS ORDERED: Lorazepam 0.5 MG TAB PO PRN (05:42)
[2023-02-11] MEDS ORDERED: Thiamine 100 MG TAB PO SCH (09:00)
== END 2023-02-09 20:30 | disposition home or self-care (01) | DRG 291 ==
LOC: ERS 04:33 → IMCU/EMU 06:08 → UNDODISIN 02-09 18:28
PROVIDERS: ADMIT Student in an Organized Health Care Education/Training Program; ATTEND Internal Medicine
DX: I13.0 Hypertensive heart and chronic kidney disease with heart failure and stage 1 through stage 4 chronic kidney disease, or unspecified chronic kidney disease (principal); I50.43 Acute on chronic combined systolic (congestive) and diastolic (congestive) heart failure; J96.20 Acute and chronic respiratory failure, unspecified whether with hypoxia or hypercapnia; N17.9 Acute kidney failure, unspecified; F15.10 Other stimulant abuse, uncomplicated; G47.30 Sleep apnea, unspecified; F17.210 Nicotine dependence, cigarettes, uncomplicated; I08.1 Rheumatic disorders of both mitral and tricuspid valves; I73.9 Peripheral vascular disease, unspecified; N18.30 Chronic kidney disease, stage 3 unspecified; E78.00 Pure hypercholesterolemia, unspecified; R77.8 Other specified abnormalities of plasma proteins; F10.20 Alcohol dependence, uncomplicated; I42.9 Cardiomyopathy, unspecified; Z79.899 Other long term (current) drug therapy; Z79.82 Long term (current) use of aspirin; Z91.148 Patient's other noncompliance with medication regimen for other reason; Z71.41 Alcohol abuse counseling and surveillance of alcoholic
CPT/HCPCS: 36415; 71045; 80048; 83880; 93306; 93798; 94660; J1940; J3411

== ENCOUNTER 2023-04-21 18:17 | Inpatient (IN) | payer OTHER ==
[~2023-04-21 18:17] MED LIST changes: +FLU VACC QS2023-24(6MOS UP)/PF 60 MCG/0.5 ML SYRINGE IM ONE; -Iopamidol 370 76% 100 ML VIAL ONE
[2023-04-21 18:44] VITALS: BMI 27.9
[2023-04-21] MEDS ORDERED: Acetaminophen 325 MG TAB PO PRN (19:37)
[2023-04-21] MEDS ORDERED: Ondansetron ODT 4 MG TAB PO PRN (19:37)
[2023-04-21] MEDS ORDERED: Lorazepam 2 MG/ML VIAL IM PRN (19:55)
[2023-04-21] MEDS ORDERED: Lorazepam 1 MG TAB PO PRN (19:55)
[2023-04-21] MEDS ORDERED: Electrolyte Replacement Protocol 1 EACH FS PRN (20:00)
[2023-04-21 20:37] LABS: #Eosinphils 0.1 thou/uL (0.0-0.7); #Monocytes 0.6 thou/uL (0.11-0.59); #Neutrophils 3.3 thou/uL (1.40-6.50); %Basophils 0.6 % (0.0-1.0); %Eosinophils 1.4 % (0.0-10.0); %Lymphocytes 18.9 % (21.0-51.0); %Monocytes 12.8 % (0.0-10.0); %Neutrophils 66.1 % (42.0-75.0); Hematocrit 34.5 % (42.0-52.0); Hemoglobin 11.9 g/dL (14.0-18.0); Mean Corpuscular HGB CONC 34.5 g/dL (32.0-36.0); Mean Corpuscular Hemoglobin 33.1 pg (27.0-31.0); Mean Corpuscular Volume 96.1 fl (78.0-98.0); Mean Platelet Volume 9.7 fL (7.4-10.4); Platelet Count 326 10x3/uL (130-400); RBC Distribution Width 14.8 % (11.5-14.5); Red Blood Cell (RBC) Count 3.59 mill/uL (4.70-6.10); White Blood Cell (WBC) Count 4.9 10x3/uL (4.8-10.8)
[2023-04-21] MEDS: Famotidine 20 MG TAB PO SCH (20:58)
[2023-04-21] MEDS: Simvastatin 10 MG TAB PO SCH (20:58)
[2023-04-21] MEDS: Thiamine HCl 200 MG/2 ML VIAL SLOW IVP SCH (20:59)
[2023-04-21 21:01] LABS: Phosphorus 3.5 mg/dL (2.3-4.7)
[2023-04-21 21:03] LABS: ALT (SGPT) 27 U/L (8-55); AST (SGOT) 19 U/L (5-34); Albumin 3.6 g/dL (3.5-5.0); Alkaline Phosphatase 90 U/L (40-110); Anion Gap 12 mmol/L (10-20); BUN (Urea Nitrogen) 11 mg/dL (8.4-25.7); Bilirubin, Total 0.5 mg/dL (0.2-1.2); Calc. Creatinine Clearance 103 mL/min (70-130); Calcium 8.9 mg/dL (7.8-10.44); Carbon Dioxide 28 mmol/L (22-29); Chloride 105 mmol/L (98-107); Estimated GFR 83; Globulin 2.2 g/dL (2.4-3.5); Glucose 135 mg/dL (70-105); Potassium 3.9 mmol/L (3.5-5.1); Protein, Total 5.8 g/dL (6.0-8.3); Sodium 141 mmol/L (136-145)
[2023-04-21 21:06] LABS: Troponin I 0.051 ng/mL (< 0.028)
[2023-04-21] MEDS ORDERED: Magnesium 2 GM/50 ML(in water) 2 GM in Premix 1 BAG IVPB SCH (23:59)
[2023-04-22 00:03] LABS: Troponin I 0.052 ng/mL (< 0.028)
[2023-04-22] MEDS: Furosemide 40 MG/4 ML VIAL SLOW IVP SCH ×2 (05:27→15:13)
[2023-04-22] MEDS ORDERED: Carvedilol 6.25 MG TAB PO SCH (09:00)
[2023-04-22] MEDS: Aspirin Chewable 81 MG TAB PO SCH (09:00)
[2023-04-22] MEDS: Lisinopril 20 MG TAB PO SCH (09:02)
[2023-04-22] MEDS: Folic Acid 1 MG TAB PO SCH (09:02)
[2023-04-22] MEDS: Spironolactone 25 MG TAB PO SCH (09:02)
[2023-04-22] MEDS: Famotidine 20 MG TAB PO SCH ×2 (09:02→21:30)
[2023-04-22] MEDS: Multivit, Therapeutic 1 TAB PO SCH (09:02)
[2023-04-22] MEDS ORDERED: Lorazepam 1 MG TAB PO PRN (19:55)
[2023-04-22] MEDS: Thiamine HCl 200 MG/2 ML VIAL SLOW IVP SCH (21:30)
[2023-04-22] MEDS: Simvastatin 10 MG TAB PO SCH (21:30)
[2023-04-22] MEDS ORDERED: Benzonatate 100 MG CAP PO PRN (22:23)
[2023-04-23 03:35] VITALS: TEMP 98.1
[2023-04-23 05:38] LABS: #Basophils 0.1 thou/uL (0.0-0.2); #Eosinphils 0.1 thou/uL (0.0-0.7); #Neutrophils 4.4 thou/uL (1.40-6.50); %Basophils 0.7 % (0.0-1.0); %Eosinophils 0.9 % (0.0-10.0); %Lymphocytes 18.4 % (21.0-51.0); %Monocytes 14.4 % (0.0-10.0); %Neutrophils 65.3 % (42.0-75.0); Hemoglobin 12.5 g/dL (14.0-18.0); Mean Corpuscular HGB CONC 34.7 g/dL (32.0-36.0); Mean Corpuscular Hemoglobin 33.1 pg (27.0-31.0); Mean Corpuscular Volume 95.2 fl (78.0-98.0); Mean Platelet Volume 9.9 fL (7.4-10.4); Platelet Count 344 10x3/uL (130-400); RBC Distribution Width 14.7 % (11.5-14.5); Red Blood Cell (RBC) Count 3.78 mill/uL (4.70-6.10); White Blood Cell (WBC) Count 6.7 10x3/uL (4.8-10.8)
[2023-04-23 06:05] LABS: Anion Gap 15 mmol/L (10-20); BUN (Urea Nitrogen) 12 mg/dL (8.4-25.7); Calc. Creatinine Clearance 87 mL/min (70-130); Calcium 8.9 mg/dL (7.8-10.44); Carbon Dioxide 27 mmol/L (22-29); Chloride 101 mmol/L (98-107); Estimated GFR 72; Glucose 138 mg/dL (70-105); Magnesium 1.9 mg/dL (1.6-2.6); Potassium 3.9 mmol/L (3.5-5.1); Sodium 139 mmol/L (136-145)
[2023-04-23] MEDS: Furosemide 40 MG/4 ML VIAL SLOW IVP SCH (06:33)
[2023-04-23 07:44] VITALS: BP 149/89
[2023-04-23] MEDS ORDERED: Magnesium 2 GM/50 ML(in water) 2 GM in Premix 1 BAG IVPB SCH (08:00)
[2023-04-23] MEDS ORDERED: Carvedilol 6.25 MG TAB PO SCH (08:22)
[2023-04-23] MEDS ORDERED: Carvedilol 25 MG TAB PO SCH (09:00)
[2023-04-23] MEDS: Famotidine 20 MG TAB PO SCH (09:13)
[2023-04-23] MEDS: Lisinopril 20 MG TAB PO SCH (09:13)
[2023-04-23] MEDS: Multivit, Therapeutic 1 TAB PO SCH (09:13)
[2023-04-23] MEDS: Folic Acid 1 MG TAB PO SCH (09:13)
[2023-04-23] MEDS: Aspirin Chewable 81 MG TAB PO SCH (09:13)
[2023-04-23] MEDS: Spironolactone 25 MG TAB PO SCH (09:13)
[2023-04-23] MEDS ORDERED: Lorazepam 1 MG TAB PO PRN (19:55)
[2023-04-24] MEDS ORDERED: Lorazepam 0.5 MG TAB PO PRN (19:55)
[2023-04-24] MEDS ORDERED: Thiamine 100 MG TAB PO SCH (20:00)
== END 2023-04-23 12:44 | disposition home or self-care (01) | DRG 917 ==
LOC: INTOOBSV 18:17 → 2SW 18:17 → OBSVTOIN 04-23 08:28
PROVIDERS: ADMIT Family Medicine; ATTEND Internal Medicine
DX: T43.651A Poisoning by methamphetamines accidental (unintentional), initial encounter (principal); I50.23 Acute on chronic systolic (congestive) heart failure; I13.0 Hypertensive heart and chronic kidney disease with heart failure and stage 1 through stage 4 chronic kidney disease, or unspecified chronic kidney disease; N18.9 Chronic kidney disease, unspecified; E78.5 Hyperlipidemia, unspecified; F17.210 Nicotine dependence, cigarettes, uncomplicated; F15.10 Other stimulant abuse, uncomplicated; F10.20 Alcohol dependence, uncomplicated; Y92.9 Unspecified place or not applicable; Z79.82 Long term (current) use of aspirin; Z91.148 Patient's other noncompliance with medication regimen for other reason; Z79.899 Other long term (current) drug therapy
CPT/HCPCS: 36415; 80048; 83735; 83880; 84100; 85025; 94760; 96374; 96375; 96376; G0378; J1940; J3411; J3475

== ENCOUNTER 2023-05-19 22:18 | Inpatient (IN) | payer OTHER ==
[2023-05-19 23:37] LABS: #Monocytes 0.2 thou/uL (0.11-0.59); #Neutrophils 3.6 thou/uL (1.40-6.50); %Basophils 0.7 % (0.0-1.0); %Lymphocytes 12.2 % (21.0-51.0); %Monocytes 5.5 % (0.0-10.0); %Neutrophils 81.4 % (42.0-75.0); Hemoglobin 12.8 g/dL (14.0-18.0); Mean Corpuscular HGB CONC 33.7 g/dL (32.0-36.0); Mean Corpuscular Hemoglobin 32.2 pg (27.0-31.0); Mean Corpuscular Volume 95.5 fl (78.0-98.0); Mean Platelet Volume 9.9 fL (7.4-10.4); Platelet Count 234 10x3/uL (130-400); Red Blood Cell (RBC) Count 3.98 mill/uL (4.70-6.10); White Blood Cell (WBC) Count 4.4 10x3/uL (4.8-10.8)
[2023-05-19] MEDS ORDERED: Nitroglycerin 2% Ointment 1 INCH/1 GM Packet ONE (23:42)
[2023-05-19] MEDS ORDERED: Ondansetron ODT 4 MG TAB SL PRN (23:45)
[2023-05-19] MEDS ORDERED: Acetaminophen 325 MG TAB PO PRN (23:45)
[2023-05-19] MEDS ORDERED: Ondansetron PF 4 MG/2 ML Vial IVP PRN (23:45)
[2023-05-19 23:59] LABS: Lactic Acid 1.7 mmol/L (0.5-2.2)
[2023-05-20 00:06] LABS: ALT (SGPT) 32 U/L (8-55); AST (SGOT) 31 U/L (5-34); Albumin 3.9 g/dL (3.5-5.0); Alkaline Phosphatase 92 U/L (40-110); Anion Gap 17 mmol/L (10-20); BUN (Urea Nitrogen) 11 mg/dL (8.4-25.7); Bilirubin, Total 1.3 mg/dL (0.2-1.2); Calc. Creatinine Clearance 0 mL/min (70-130); Calcium 8.5 mg/dL (7.8-10.44); Carbon Dioxide 23 mmol/L (22-29); Chloride 101 mmol/L (98-107); Estimated GFR 62; Globulin 2.9 g/dL (2.4-3.5); Glucose 136 mg/dL (70-105); Potassium 4.1 mmol/L (3.5-5.1); Protein, Total 6.8 g/dL (6.0-8.3); Sodium 137 mmol/L (136-145)
[2023-05-20 00:09] LABS: Troponin I 0.058 ng/mL (< 0.028)
[2023-05-20] MEDS ORDERED: Ondansetron PF 4 MG/2 ML Vial IVP PRN (01:42)
[2023-05-20] MEDS ORDERED: Ipratropium/Albuterol 3 ML NEB NEB PRN (01:59)
[2023-05-20 02:32] LABS: #Monocytes 0.3 thou/uL (0.11-0.59); #Neutrophils 2.7 thou/uL (1.40-6.50); %Basophils 0.6 % (0.0-1.0); %Monocytes 7.1 % (0.0-10.0); Hematocrit 37.5 % (42.0-52.0); Hemoglobin 12.5 g/dL (14.0-18.0); Mean Corpuscular HGB CONC 33.3 g/dL (32.0-36.0); Mean Corpuscular Volume 95.9 fl (78.0-98.0); Mean Platelet Volume 10.1 fL (7.4-10.4); Platelet Count 228 10x3/uL (130-400); Red Blood Cell (RBC) Count 3.91 mill/uL (4.70-6.10); White Blood Cell (WBC) Count 3.5 10x3/uL (4.8-10.8)
[2023-05-20] MEDS ORDERED: REMDESIVIR 200 MG in Sodium Chloride 0.9% 250 ML 210 ML IV SCH (03:00)
[2023-05-20 03:06] LABS: Troponin I 0.055 ng/mL (< 0.028)
[2023-05-20 04:11] LABS: Magnesium 1.9 mg/dL (1.6-2.6)
[2023-05-20] MEDS ORDERED: Furosemide 40 MG/4 ML VIAL ONE (05:55)
[2023-05-20] MEDS: Furosemide 40 MG/4 ML VIAL SLOW IVP SCH ×2 (06:11→15:03)
[2023-05-20] MEDS ORDERED: Dexamethasone 10 MG/ML VIAL ONE (08:13)
[2023-05-20] MEDS ORDERED: Doxycycline 100 MG CAP ONE (08:13)
[2023-05-20] MEDS ORDERED: Aspirin Chewable 81 MG TAB ONE (08:14)
[2023-05-20] MEDS ORDERED: Famotidine 20 MG TAB ONE (08:14)
[2023-05-20] MEDS ORDERED: Carvedilol 6.25 MG TAB ONE (08:14)
[2023-05-20] MEDS ORDERED: Aspirin Chewable 81 MG TAB PO SCH (09:00)
[2023-05-20] MEDS ORDERED: Lisinopril 20 MG TAB PO SCH (09:00)
[2023-05-20] MEDS: Aspirin Chewable 81 MG TAB PO SCH (09:19)
[2023-05-20] MEDS: Carvedilol 6.25 MG TAB PO SCH (09:19)
[2023-05-20] MEDS: Dexamethasone 4 mg/ml Vial SLOW IVP SCH (09:21)
[2023-05-20] MEDS: Doxycycline 100 MG CAP PO SCH ×2 (09:21→22:29)
[2023-05-20] MEDS: Spironolactone 25 MG TAB PO SCH (09:21)
[2023-05-20] MEDS: Famotidine 20 MG TAB PO SCH ×2 (09:21→22:29)
[2023-05-20] MEDS: Famotidine/PF 20 mg/2ml Vial SLOW IVP SCH ×2 (11:36→22:30)
[2023-05-20] MEDS ORDERED: Cefepime 1 GM VIAL ONE (12:00)
[2023-05-20] MEDS ORDERED: Sodium Chloride 0.9% 100 ML ONE (12:00)
[2023-05-20] MEDS: Cefepime 1 GM in Sodium Chloride 0.9% 100 ML IVPB SCH ×2 (12:03→22:30)
[2023-05-20 15:02] VITALS: BMI 25.9
[2023-05-20 16:10] LABS: Amphetamine Detected (NotDetected); Barbiturates Screen Not Detected (NotDetected); Benzodiazepine Screen Not Detected (NotDetected); Cocaine Metabolite Screen Not Detected (NotDetected); Methadone Not Detected (NotDetected); Methamphetamine Detected (NotDetected); Opiate Screen Not Detected (NotDetected); Oxycodone Screen Not Detected (NotDetected); Phencyclidine (PCP) Not Detected (NotDetected); THC/Cannabinoid Screen Detected (NotDetected); Tricyclic Screen Not Detected (NotDetected)
[2023-05-20] MEDS: Simvastatin 10 MG TAB PO SCH (22:30)
[2023-05-21 04:31] LABS: Anion Gap 15 mmol/L (10-20); BUN (Urea Nitrogen) 26 mg/dL (8.4-25.7); Calc. Creatinine Clearance 82 mL/min (70-130); Calcium 8.5 mg/dL (7.8-10.44); Carbon Dioxide 26 mmol/L (22-29); Chloride 102 mmol/L (98-107); Estimated GFR 69; Glucose 94 mg/dL (70-105); Potassium 4.2 mmol/L (3.5-5.1); Sodium 139 mmol/L (136-145)
[2023-05-21] MEDS: Furosemide 40 MG/4 ML VIAL SLOW IVP SCH ×2 (05:02→13:10)
[2023-05-21] MEDS: Aspirin Chewable 81 MG TAB PO SCH (08:01)
[2023-05-21] MEDS: Doxycycline 100 MG CAP PO SCH (08:01)
[2023-05-21] MEDS: Cefepime 1 GM in Sodium Chloride 0.9% 100 ML IVPB SCH (08:01)
[2023-05-21] MEDS: Carvedilol 6.25 MG TAB PO SCH (08:01)
[2023-05-21] MEDS: Spironolactone 25 MG TAB PO SCH (08:01)
[2023-05-21] MEDS: Famotidine 20 MG TAB PO SCH (08:01)
[2023-05-21] MEDS: NIFEdipine XL 30 MG ER.TAB PO SCH (08:01)
[2023-05-21] MEDS: Famotidine/PF 20 mg/2ml Vial SLOW IVP SCH (08:02)
[2023-05-21] MEDS: Dexamethasone 4 mg/ml Vial SLOW IVP SCH (08:02)
[2023-05-21] MEDS ORDERED: cloNIDine 0.1 MG TAB PO PRN (08:23)
[2023-05-21] MEDS ORDERED: REMDESIVIR 100 MG in Sodium Chloride 0.9% 250 ML 230 ML IV SCH (09:00)
[2023-05-21] MEDS: Simvastatin 10 MG TAB PO SCH (20:12)
[2023-05-22] MEDS: Furosemide 40 MG/4 ML VIAL SLOW IVP SCH (05:17)
[2023-05-22 05:32] LABS: Anion Gap 13 mmol/L (10-20); BUN (Urea Nitrogen) 21 mg/dL (8.4-25.7); Calc. Creatinine Clearance 82 mL/min (70-130); Calcium 8.3 mg/dL (7.8-10.44); Carbon Dioxide 29 mmol/L (22-29); Chloride 101 mmol/L (98-107); Estimated GFR 79; Glucose 115 mg/dL (70-105); Potassium 3.6 mmol/L (3.5-5.1); Sodium 139 mmol/L (136-145)
[2023-05-22] MEDS ORDERED: Dexamethasone 4 MG TAB PO SCH (08:00)
[2023-05-22] MEDS: Carvedilol 6.25 MG TAB PO SCH (08:25)
[2023-05-22] MEDS: Aspirin Chewable 81 MG TAB PO SCH (08:26)
[2023-05-22] MEDS: NIFEdipine XL 30 MG ER.TAB PO SCH (08:26)
[2023-05-22] MEDS: Spironolactone 25 MG TAB PO SCH (08:26)
[2023-05-22] MEDS ORDERED: NIFEdipine XL 30 MG ER.TAB PO SCH (10:30)
[2023-05-22 11:00] VITALS: BP 124/83; TEMP 97.8
[2023-05-22] MEDS ORDERED: Isosorbide Mononitrate 30 MG ER.TAB PO SCH (11:00)
[2023-05-23] MEDS ORDERED: Furosemide 40 MG TAB PO SCH (07:30)
[2023-05-23] MEDS ORDERED: NIFEdipine XL 60 MG ER.TAB PO SCH (09:00)
[2023-05-23] MEDS ORDERED: Isosorbide Mononitrate 30 MG ER.TAB PO SCH (09:00)
== END 2023-05-22 13:15 | disposition home or self-care (01) | DRG 177 ==
LOC: ERS 22:18 → ERHOLD 23:43 → 2NO 05-20 14:48
PROVIDERS: ADMIT Student in an Organized Health Care Education/Training Program; ATTEND Internal Medicine Critical Care Medicine
DX: U07.1 COVID-19 (principal); I50.23 Acute on chronic systolic (congestive) heart failure; J12.82 Pneumonia due to coronavirus disease 2019; J15.9 Unspecified bacterial pneumonia; I13.0 Hypertensive heart and chronic kidney disease with heart failure and stage 1 through stage 4 chronic kidney disease, or unspecified chronic kidney disease; I16.1 Hypertensive emergency; I42.0 Dilated cardiomyopathy; I5A Non-ischemic myocardial injury (non-traumatic); Z91.148 Patient's other noncompliance with medication regimen for other reason; F19.10 Other psychoactive substance abuse, uncomplicated; N18.9 Chronic kidney disease, unspecified; E78.5 Hyperlipidemia, unspecified; G47.30 Sleep apnea, unspecified; F17.210 Nicotine dependence, cigarettes, uncomplicated; F15.10 Other stimulant abuse, uncomplicated; F12.10 Cannabis abuse, uncomplicated; T78.3XXA Angioneurotic edema, initial encounter; F10.20 Alcohol dependence, uncomplicated; I16.0 Hypertensive urgency
CPT/HCPCS: 36415; 80048; 80306; 83605; 83735; 83880; 84484; 85025; 93005; 94760; J0248; J0692; J1100; J1650; J1940; J3490; J7050; J8540; S0028

== ENCOUNTER 2023-11-04 14:36 | Inpatient (IN) | payer OTHER ==
[2023-11-04 15:29] VITALS: BMI 25.0
[2023-11-04] MEDS ORDERED: Lorazepam 2 MG/ML VIAL IM PRN (15:56)
[2023-11-04] MEDS ORDERED: Ondansetron ODT 4 MG TAB PO PRN (15:56)
[2023-11-04] MEDS ORDERED: Lorazepam 1 MG TAB PO PRN (15:56)
[2023-11-04] MEDS ORDERED: Electrolyte Replacement Protocol 1 EACH FS SCH (16:00)
[2023-11-04] MEDS ORDERED: NIFEdipine XL 30 MG ER.TAB PO SCH (16:00)
[2023-11-04] MEDS: Lorazepam 1 MG TAB PO SCH (17:18)
[2023-11-04] MEDS: Multivit, Therapeutic 1 TAB PO SCH (17:18)
[2023-11-04] MEDS: Nicotine 14 MG PATCH TD SCH (17:19)
[2023-11-04] MEDS: Thiamine HCl 200 MG/2 ML VIAL SLOW IVP SCH (17:19)
[2023-11-04] MEDS: Folic Acid 1 MG TAB PO SCH (17:19)
[2023-11-04 17:57] LABS: Bilirubin, Direct 0.7 mg/dL (0.1-0.3); Magnesium 1.7 mg/dL (1.6-2.6); Phosphorus 3.2 mg/dL (2.3-4.7)
[2023-11-04 18:00] LABS: Troponin I 0.087 ng/mL (< 0.028)
[2023-11-04] MEDS: Simvastatin 10 MG TAB PO SCH (20:20)
[2023-11-04] MEDS: Benzonatate 100 MG CAP PO PRN (20:21)
[2023-11-04 21:45] LABS: Troponin I 0.091 ng/mL (< 0.028)
[2023-11-04] MEDS: Magnesium 2 GM/50 ML(in water) 2 GM in Premix 1 BAG IVPB SCH (22:22)
[2023-11-05 04:29] LABS: #Basophils 0.04 10x3/uL (0.0-0.2); %Basophils 0.6 % (0.0-1.0); %Eosinophils 0.9 % (0.0-10.0); %Monocytes 13.4 % (0.0-10.0); %Neutrophils 67.8 % (42.0-75.0); Hematocrit 33.5 % (42.0-52.0); Hemoglobin 11.5 g/dL (14.0-18.0); Mean Corpuscular HGB CONC 34.3 g/dL (32.0-36.0); Mean Corpuscular Hemoglobin 32.5 pg (27.0-31.0); Mean Corpuscular Volume 94.6 fL (78.0-98.0); Mean Platelet Volume 10.4 fL (7.4-10.4); Platelet Count 234 10x3/uL (130-400); RBC Distribution Width 16.4 % (11.5-14.5); Red Blood Cell (RBC) Count 3.54 mill/uL (4.70-6.10)
[2023-11-05 04:56] LABS: ALT (SGPT) 16 U/L (8-55); AST (SGOT) 20 U/L (5-34); Albumin 3.1 g/dL (3.5-5.0); Alkaline Phosphatase 108 U/L (40-110); Anion Gap 15 mmol/L (10-20); BUN (Urea Nitrogen) 14 mg/dL (8.4-25.7); Bilirubin, Total 2.5 mg/dL (0.2-1.2); Carbon Dioxide 25 mmol/L (22-29); Chloride 104 mmol/L (98-107); Globulin 3.4 g/dL (2.4-3.5); Glucose 96 mg/dL (70-105); Potassium 3.7 mmol/L (3.5-5.1); Protein, Total 6.5 g/dL (6.0-8.3); Sodium 140 mmol/L (136-145)
[2023-11-05 05:06] LABS: Calc. Creatinine Clearance 81 mL/min (70-130); Estimated GFR 71
[2023-11-05] MEDS: Multivit, Therapeutic 1 TAB PO SCH (08:40)
[2023-11-05] MEDS: Aspirin Chewable 81 MG TAB PO SCH (08:40)
[2023-11-05] MEDS: Spironolactone 25 MG TAB PO SCH (08:40)
[2023-11-05] MEDS: Pantoprazole DR 40 MG TAB PO SCH (08:40)
[2023-11-05] MEDS: Isosorbide Mononitrate 30 MG ER.TAB PO SCH (08:41)
[2023-11-05] MEDS: Carvedilol 6.25 MG TAB PO SCH ×2 (08:41→21:57)
[2023-11-05] MEDS: Folic Acid 1 MG TAB PO SCH (08:41)
[2023-11-05] MEDS: Furosemide 40 MG (4 mL) VIAL SLOW IVP SCH (08:41)
[2023-11-06 05:37] LABS: #Basophils 0.03 10x3/uL (0.0-0.2); %Basophils 0.3 % (0.0-1.0); %Eosinophils 0.4 % (0.0-10.0); %Lymphocytes 15.5 % (21.0-51.0); %Monocytes 12.4 % (0.0-10.0); %Neutrophils 71.2 % (42.0-75.0); Hematocrit 36.1 % (42.0-52.0); Hemoglobin 12.2 g/dL (14.0-18.0); Mean Corpuscular HGB CONC 33.8 g/dL (32.0-36.0); Mean Corpuscular Hemoglobin 32.5 pg (27.0-31.0); Mean Corpuscular Volume 96.3 fL (78.0-98.0); Mean Platelet Volume 10.5 fL (7.4-10.4); Platelet Count 266 10x3/uL (130-400); RBC Distribution Width 16.4 % (11.5-14.5); Red Blood Cell (RBC) Count 3.75 mill/uL (4.70-6.10)
[2023-11-06 06:20] LABS: Anion Gap 14 mmol/L (10-20); BUN (Urea Nitrogen) 17 mg/dL (8.4-25.7); Calc. Creatinine Clearance 72 mL/min (70-130); Calcium 9.2 mg/dL (7.8-10.44); Carbon Dioxide 24 mmol/L (22-29); Chloride 103 mmol/L (98-107); Estimated GFR 61; Glucose 103 mg/dL (70-105); Potassium 4.1 mmol/L (3.5-5.1); Sodium 137 mmol/L (136-145)
[2023-11-06] MEDS: Carvedilol 6.25 MG TAB PO SCH ×2 (10:30→15:13)
[2023-11-06] MEDS: Lorazepam 1 MG TAB PO PRN (11:13)
[2023-11-06] MEDS: Lorazepam 0.5 MG TAB PO SCH (15:14)
[2023-11-06] MEDS ORDERED: Lorazepam 1 MG TAB PO PRN (15:56)
[2023-11-07] MEDS: Furosemide 40 MG TAB PO SCH (10:20)
[2023-11-07] MEDS: Ipratropium/Albuterol 3 ML NEB NEB PRN (11:03)
[2023-11-07] MEDS: Thiamine 100 MG TAB PO SCH (15:18)
[2023-11-07] MEDS ORDERED: Lorazepam 0.5 MG TAB PO PRN (15:56)
[2023-11-07] MEDS: hydrALAZINE 25 MG TAB PO SCH (20:24)
[2023-11-08] MEDS: Isosorbide Dinitrate 20 MG TAB PO SCH (10:59)
[2023-11-08] MEDS: guaiFENesin/DM ER PO SCH (20:58)
[2023-11-09 05:24] LABS: Anion Gap 10 mmol/L (10-20); BUN (Urea Nitrogen) 18 mg/dL (8.4-25.7); Calc. Creatinine Clearance 85 mL/min (70-130); Calcium 8.5 mg/dL (7.8-10.44); Carbon Dioxide 28 mmol/L (22-29); Chloride 102 mmol/L (98-107); Estimated GFR 68; Glucose 109 mg/dL (70-105); Magnesium 1.9 mg/dL (1.6-2.6); Potassium 3.8 mmol/L (3.5-5.1); Sodium 136 mmol/L (136-145)
[2023-11-09] MEDS: Magnesium 2 GM/50 ML(in water) 2 GM in Premix 1 BAG IVPB SCH (08:48)
[2023-11-09 12:35] VITALS: BP 103/71; TEMP 97.6
== END 2023-11-09 15:03 | disposition home or self-care (01) | DRG 291 ==
LOC: INTOOBSV 14:36 → 2SE 14:36 → OBSVTOIN 11-05 15:07
PROVIDERS: ADMIT Internal Medicine; ATTEND Internal Medicine
DX: I13.0 Hypertensive heart and chronic kidney disease with heart failure and stage 1 through stage 4 chronic kidney disease, or unspecified chronic kidney disease (principal); I50.23 Acute on chronic systolic (congestive) heart failure; I47.20 Ventricular tachycardia, unspecified; I24.89 Other forms of acute ischemic heart disease; G47.33 Obstructive sleep apnea (adult) (pediatric); F15.10 Other stimulant abuse, uncomplicated; F10.10 Alcohol abuse, uncomplicated; N18.9 Chronic kidney disease, unspecified; E78.00 Pure hypercholesterolemia, unspecified; I42.8 Other cardiomyopathies; F17.210 Nicotine dependence, cigarettes, uncomplicated; Z91.148 Patient's other noncompliance with medication regimen for other reason; Z79.82 Long term (current) use of aspirin; Z91.199 Patient's noncompliance with other medical treatment and regimen due to unspecified reason; Z79.899 Other long term (current) drug therapy
CPT/HCPCS: 36415; 80048; 80053; 82248; 83735; 84100; 85025; 93306; 94640; J1940; J3411; J3475; J7620